=== PATIENT | female | born 1990 | race Hispanic/Latino ===

== ENCOUNTER 2017-02-09 16:17 | Emergency (ER) | payer BC ==
[2017-02-09 16:25] VITALS: BP 125/76; PULSE 79; RESP 17; TEMP 98.1; O2SAT 99
--- NOTE | 2017-02-09 16:49 | ED PDOC ---
HPI: Female Pain Time Seen by Provider: 02/09/17 16:35 Chief Complaint (Nursing): Abdominal Pain Chief Complaint (Provider): abdominal pain History Per: Patient Additional Complaint(s): Patient is currently menstruating and presents to emergency department with cramping abdominal pain and vomiting. Patient states she took Naprosyn earlier but vomited 5 minutes later. She called her primary doctor in [place] and was told to come to ED. Patient states that she typically gets very bad cramps during her cycle. She rates abdominal pain from 8 out of 10. Past Medical History Reviewed: Historical Data, Nursing Documentation, Vital Signs Vital Signs: Last Vital Signs Temp 98.1 F 02/09/17 16:21 Pulse 79 02/09/17 16:21 Resp 17 02/09/17 16:21 BP 125/76 02/09/17 16:21 Pulse Ox 99 02/09/17 16:21 - Medical History PMH: No Chronic Diseases - Surgical History Surgical History: No Surg Hx - Family History Family History: States: No Known Family Hx - Living Arrangements Living Arrangements: With Friends/Others - Social History Current smoker - smoking cessation education provided: No Alcohol: Social Drugs: Denies - Home Medications Home Medications: Ambulatory Orders Medication Instructions Recorded Ibuprofen [Motrin Tab] 800 mg PO Q8 PRN #20 tab 02/09/17 Ondansetron [Zofran Odt] 4 mg PO ASDIR PRN #10 odt 02/09/17 traMADol [Ultram] 50 mg PO TID PRN #6 tab 02/09/17 - Allergies Allergies/Adverse Reactions: Allergies Allergy/AdvReac Type Severity Reaction Status Date / Time No Known Allergies Allergy Verified 02/09/17 16:21 Review of Systems ROS Statement: Except As Marked, All Systems Reviewed And Found Negative Constitutional: Negative for: Fever Genitourinary Female: Positive for: Vaginal Bleeding (currently menstruating), Pelvic Pain. Negative for: Dysuria, Frequency, Hematuria Physical Exam - Reviewed Nursing Documentation Reviewed: Yes Vital Signs Reviewed: Yes - Physical Exam Skin: Negative for: Pallor Eye Exam: Positive for: Normal appearance Cardiovascular/Chest: Positive for: Regular Rate, Rhythm Respiratory: Positive for: Normal Breath Sounds Gastrointestinal/Abdominal: Positive for: Soft. Negative for: Tenderness, Distended, Guarding, Rebound Neurologic/Psych: Positive for: Alert, Oriented - Laboratory Results Urine POC: Negative Urine dip results: Positive for: Blood (large). Negative for: Leukocyte Esterase, Nitrate, Ketones, Glucose, Bilirubin, Protein - ECG O2 Sat by Pulse Oximetry: 99 Pulse Ox Interpretation: Normal Medical Decision Making Medical Decision Making: Impression: menstrual cramps Plan: Urine dip and test IM toradol IM zofran Nausea is resolved after Zofran given, patient was able to tolerate water in ED with no further emesis. Patient states pain is only slightly improved after Toradol dose. Prescriptions given for ibuprofen, tramadol and Zofran. Prescription history reviewed and patient has no previous narcotic prescriptions on file as per [facility]. Patient was instructed to follow up with her primary doctor in 2-3 days. Disposition - Clinical Impression Clinical Impression: Menstrual cramps - Patient ED Disposition Is Patient to be Admitted: No Counseled Patient/Family Regarding: Diagnosis, Need For Followup, Rx Given - Disposition Referrals: [facility] [Outside] Disposition: Routine/Home Disposition Time: 18:03 Condition: STABLE Additional Instructions: Take prescription meds as directed. Follow-up with primary doctor in 2-3 days. Prescriptions: Ibuprofen [Motrin Tab] 800 mg PO Q8 PRN #20 tab PRN Reason: Pain, Moderate (4-7) Ondansetron [Zofran Odt] 4 mg PO ASDIR PRN #10 odt PRN Reason: Nausea/Vomiting traMADol [Ultram] 50 mg PO TID PRN #6 tab PRN Reason: Pain, Moderate (4-7) Instructions: Menstruation (ED)
== END 2017-02-09 18:10 | disposition home or self-care (01) ==
LOC: H.ER 16:17
DX: N94.6 Dysmenorrhea, unspecified (principal)
CPT/HCPCS: 81025; 96372; 99283; J1885; J2405